=== PATIENT | male | born 1980 | race Caucasian/White ===

== ENCOUNTER 2020-03-08 09:48 | Emergency (ER) | payer OTHER ==
[~2020-03-08] VITALS: Ht 175.3 cm; Wt 79.4 kg
[2020-03-08] MEDS ORDERED: OXYCODONE/APAP 5-325 MG TABLET PO ONE (10:15)
[2020-03-08] MEDS ORDERED: OXYCODONE/APAP 5-325 MG TABLET ONE (10:21)
--- NOTE | 2020-03-08 10:28 | NUR ---
PT IS IN ROOM #2B. DR LAL EVALUATED THE PT.
--- NOTE | 2020-03-08 11:03 | NUR ---
PT WAS D/C'd TO HOME. D/C INSTRUCTIONS GIVEN TO THE PT. NO S/S OF DISTRESS AT THE TIME OF DISCHARGE.
[2020-03-08 11:16] VITALS: BP 139/88
== END 2020-03-08 11:19 | disposition home or self-care (01) ==
LOC: ER 09:48
DX: M54.5 Low back pain (principal); T14.90XA Injury, unspecified, initial encounter; V43.92XA Unspecified car occupant injured in collision with other type car in traffic accident, initial encounter; Y92.410 Unspecified street and highway as the place of occurrence of the external cause; Z82.49 Family history of ischemic heart disease and other diseases of the circulatory system; F17.200 Nicotine dependence, unspecified, uncomplicated; G89.29 Other chronic pain; F41.9 Anxiety disorder, unspecified; Z59.0 Homelessness
CPT/HCPCS: 72100; A4663

== ENCOUNTER 2023-01-29 22:47 | Emergency (ER) | payer OTHER ==
[~2023-01-29 22:47] MED LIST: ALPR2TAB2 PO; BUPR100T4 PO; TRAM50TA2 PO
[2023-01-31] MEDS ORDERED: CEPH500T PO (05:36)
[2023-01-31] MEDS ORDERED: LORA2TAB95 PO (05:36)
== END 2023-01-30 00:50 | disposition left against medical advice (07) ==
LOC: ER 22:47
DX: Z53.21 Procedure and treatment not carried out due to patient leaving prior to being seen by health care provider (principal)

== ENCOUNTER 2023-01-30 01:28 | Emergency (ER) | payer OTHER ==
--- NOTE | 2023-01-30 01:32 | NUR ---
Patient was called to be triaged, but patient decided not to be seen anymore. Patient was encourage to see ERMD due to being registered earlier today but left without being triaged or seen by ERMD. Patient refused to be triaged or to be seen by ERMD.
[2023-01-31] MEDS ORDERED: LORA2TAB95 PO (05:36)
[2023-01-31] MEDS ORDERED: CEPH500T PO (05:36)
== END 2023-01-30 01:40 | disposition left against medical advice (07) ==
LOC: ER 01:37
DX: Z53.21 Procedure and treatment not carried out due to patient leaving prior to being seen by health care provider (principal)

== ENCOUNTER 2023-01-31 05:02 | Emergency (ER) | payer OTHER ==
[~2023-01-31] VITALS: Ht 172.7 cm; Wt 81.6 kg
--- NOTE | 2023-01-31 05:19 | NUR ---
seen and examined by Dr. Dee
[2023-01-31] MEDS ORDERED: LORAZEPAM 0.5 MG TABLET PO ONE (05:30)
[2023-01-31] MEDS ORDERED: SULFAMETH/TRIMETH 800/160 MG TABLET PO ONE (05:30)
[2023-01-31] MEDS ORDERED: LORAZEPAM 1 MG TABLET ONE (05:30)
[2023-01-31] MEDS ORDERED: SULFAMETH/TRIMETH 800/160 MG TABLET ONE (05:30)
[2023-01-31] MEDS ORDERED: LORA2TAB95 PO (05:36)
[2023-01-31] MEDS ORDERED: CEPH500T PO (05:36)
[2023-01-31 05:47] VITALS: BP 131/92
== END 2023-01-31 05:51 | disposition home or self-care (01) ==
LOC: ER 05:04
DX: L03.115 Cellulitis of right lower limb (principal); L97.419 Non-pressure chronic ulcer of right heel and midfoot with unspecified severity; F41.9 Anxiety disorder, unspecified; Z76.0 Encounter for issue of repeat prescription; F13.20 Sedative, hypnotic or anxiolytic dependence, uncomplicated; F43.10 Post-traumatic stress disorder, unspecified; Z59.00 Homelessness unspecified; F17.200 Nicotine dependence, unspecified, uncomplicated; F19.10 Other psychoactive substance abuse, uncomplicated; G89.29 Other chronic pain; M54.9 Dorsalgia, unspecified; Z79.899 Other long term (current) drug therapy
CPT/HCPCS: A4663

== ENCOUNTER 2023-02-01 05:50 | Emergency (ER) | payer OTHER ==
[~2023-02-01 05:50] MED LIST changes: +CEPH500T PO; +LORA2TAB95 PO
--- NOTE | 2023-02-01 06:16 | NUR ---
Pt not in waiting room.
== END 2023-02-01 06:27 | disposition left against medical advice (07) ==
LOC: ER 05:50
DX: Z53.21 Procedure and treatment not carried out due to patient leaving prior to being seen by health care provider (principal)